=== PATIENT | male | born 1980 | race Caucasian/White ===

== ENCOUNTER 2017-05-28 09:40 | Emergency (ER) | payer SELFPAY ==
[~2017-05-28] VITALS: Ht 188 cm; Wt 120.0 kg
[~2017-05-28 09:40] MED LIST: CLIN1CAP5 PO; LORTA5 PO
[2017-05-28 09:43] VITALS: BP 137/79; PULSE 79; RESP 14; TEMP 98.3; O2SAT 97
[2017-05-28] MEDS ORDERED: KETOROLAC TROMETHAMINE 30 MG/ML (IVP) VIAL IVP ONE (10:30)
[2017-05-28] MEDS ORDERED: CLINDAMYCIN INJ 600 MG in SODIUM CHLORIDE 0.9% INJ 100 ML IV ONE (10:30)
[2017-05-28] MEDS ORDERED: CLINDAMYCIN 600 MG/NS PREMIX 50 ML IV ONE (10:30)
[2017-05-28] MEDS ORDERED: SODIUM CHLORIDE 0.9% FLUSH 10 ML FLUSH IVF PRN (10:30)
[2017-05-28] MEDS ORDERED: ACETAMINOPHEN 325 MG TAB PO ONE (10:30)
--- NOTE | 2017-05-28 10:43 | PD ---
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 Patient states it started several days ago and has been draining spontaneously. Patient was seen at [facility] yesterday and started on clindamycin 300 mg 3 times daily. Patient is here today as he has worsening headache, claims to have dizziness as well as visual issues associated he thinks from his illness. Patient does have a history of hitting the top of his head approximately 5 days ago with abrasions noted to the top of the scalp. Patient also has itchy rash to both wrists which have been present since last Sunday. Patient denies rash anywhere else. Rash was present prior to starting antibiotics yesterday. Currently headache is about 8 out of 10. Patient has mild nausea but no vomiting. Patient states he has difficulty driving secondary to his dizziness. Patient denies significant sore throat or difficulty swallowing. He denies any other specific neurological deficiencies. He has no known drug allergies. PFSH Past Medical History Diminished Hearing: No Integumentary: Yes (hx mrsa) Immunizations Current: Yes Social History Alcohol Use: Yes (2 days a week) Tobacco Use: Yes (1 pk) Substance Use: No Allergies-Medications (Allergen,Severity, Reaction): Coded Allergies: No Known Allergies (Unverified Allergy, Unknown, 05/28/17) Reported Meds & Prescriptions Reported Meds & Active Scripts Active Permethrin Topical 5% (Permethrin) 5% Cream 1 Applic TOPICAL ONCE Bactroban Topical (Mupirocin) 22 Gm Cream 1 Applic TOPICAL BID Mapap Extra Strength (Acetaminophen) 500 Mg Tab 1,000 Mg PO Q4-6H PRN Ibuprofen 800 Mg Tab 800 Mg PO Q8H PRN Clindamycin Hcl (Clindamycin HCl) 150 Mg Cap 2 Cap PO Q6H 10 Days Hydrocodone/Acetaminophen 5 mg/325 mg 1 Tab 1 Tab PO Q6H PRN Review of Systems Except as stated in HPI: all other systems reviewed are Neg General / Constitutional: No: Fever, Chills Eyes: Positive: Blurred Vision, No: Diploplia, Photophobia, Drainage, Redness, Foreign Body Sensation, Pain, Tearing, Blind Spots, Visual changes, Blindness HENT: Positive: Headaches, Lightheadedness, Rhinitis, Rhinorrhea, Congestion, Earache, No: Vertigo, Sore Throat, Nosebleed, Neck Stiffness, Neck Pain, Masses , Gingival Bleeding, Dental Difficulties, Ear Discharge Cardiovascular: No: Chest Pain or Discomfort Respiratory: No: Cough, Shortness of Breath, Wheezing Gastrointestinal: Positive: Nausea, No: Vomiting, Diarrhea, Abdominal Pain Genitourinary: No: Dysuria Musculoskeletal: No: Myalgias, Arthralgias, Limited ROM, Pain Skin: Positive Rash, Positive Itching (History of present illness) Neurologic: Positive: Dizziness, Headache, No: Weakness, Syncope, Focal Abnormalities, Coordination Problem, Tremor, Ataxia, Change in Mentation, Slurred Speech, Paresthesia, Incontinence, Seizures, Sensory Disturbance Psychiatric: No: Depression Endocrine: No: Polydipsia Hematologic/Lymphatic: No: Easy Bruising Physical Exam Narrative GENERAL: Patient appears in moderate distress. SKIN: Warm and dry. Normal color. Normal turgor. Patient has an open centimeter wide wound to the left mastoid region with localized erythema, tenderness and induration. No deep abscess is suspected. Patient is also noted to have raised dry rash to both wrists with linear distribution consistent with possible scabies. HEAD: Atraumatic. Normocephalic. Tender over the left mastoid region. EYES: Pupils equal and round. No scleral icterus. No injection or drainage. No nystagmus. ENT: No nasal bleeding or discharge. Mucous membranes pink and moist. Sinuses are mildly tender on the left frontal and maxillary region. Posterior pharynx is unremarkable. Uvula is midline. Airway is patent. TMs are somewhat dull bilaterally without injection. NECK: Trachea midline. Supple with mild lymphadenopathy in the left anterior cervical chain. CARDIOVASCULAR: Regular rate and rhythm. RESPIRATORY: No accessory muscle use. Clear to auscultation. Breath sounds equal bilaterally. MUSCULOSKELETAL: Extremities without clubbing, cyanosis, or edema. No obvious deformities. NEUROLOGICAL: Awake and alert. No obvious cranial nerve deficits. Motor grossly within normal limits. Five out of 5 muscle strength in the arms and legs. Normal speech. PSYCHIATRIC: Appropriate mood and affect; insight and judgment normal. Data Data Last Documented VS Vital Signs Date Time Temp Pulse Resp B/P (MAP) Pulse Ox O2 Delivery O2 Flow Rate FiO2 05/28/17 09:43 98.3 79 14 137/79 (98) 97 Orders Orders Basic Metabolic Panel (Bmp) (05/28/17 10:16) Complete Blood Count With Diff (05/28/17 10:16) Wound Culture And Gram Stain (05/28/17 10:16) Iv Access Insert/Monitor (05/28/17 10:16) Acetaminophen (Tylenol) (05/28/17 10:30) Ketorolac Inj (Toradol Inj) (05/28/17 10:30) Sodium Chloride 0.9% Flush (Ns Flush) (05/28/17 10:30) Ct Brain W/O Iv Contrast(Rout) (05/28/17 10:16) Clindamycin 600 Mg/Ns Premix (Cleocin 60 (05/28/17 10:30) Labs Laboratory Tests Test 05/28/17 10:32 White Blood Count 10.6 TH/MM3 Red Blood Count 4.47 MIL/MM3 Hemoglobin 14.0 GM/DL Hematocrit 40.7 % Mean Corpuscular Volume 90.9 FL Mean Corpuscular Hemoglobin 31.3 PG Mean Corpuscular Hemoglobin Concent 34.5 % Red Cell Distribution Width 13.1 % Platelet Count 290 TH/MM3 Mean Platelet Volume 6.8 FL Neutrophils (%) (Auto) 65.4 % Lymphocytes (%) (Auto) 25.7 % Monocytes (%) (Auto) 5.1 % Eosinophils (%) (Auto) 3.0 % Basophils (%) (Auto) 0.8 % Neutrophils # (Auto) 6.9 TH/MM3 Lymphocytes # (Auto) 2.7 TH/MM3 Monocytes # (Auto) 0.5 TH/MM3 Eosinophils # (Auto) 0.3 TH/MM3 Basophils # (Auto) 0.1 TH/MM3 CBC Comment DIFF FINAL Differential Comment Blood Urea Nitrogen 15 MG/DL Creatinine 0.86 MG/DL Random Glucose 144 MG/DL Calcium Level 8.4 MG/DL Sodium Level 139 MEQ/L Potassium Level 3.8 MEQ/L Chloride Level 106 MEQ/L Carbon Dioxide Level 26.9 MEQ/L Anion Gap 6 MEQ/L Estimat Glomerular Filtration Rate 100 ML/MIN MDM Medical Decision Making Medical Screen Exam Complete: Yes Emergency Medical Condition: Yes Medical Record Reviewed: Yes Differential Diagnosis Scabies. MRSA. Cellulitis. Mastoiditis. Sinusitis. Intracranial bleed. Head contusion. Headache. Narrative Course Patient is medically stable at time of exam. CT of the head is ordered to rule out intracranial bleed mastoiditis. IV access is obtained and labs are checked including CBC, BMP. Wound cultures obtained and sent to the lab. Patient is given 650 mg Tylenol p.o. as well as 30 mg Toradol IV, in addition to 600 mg clindamycin IV. CBC is unremarkable. CT is unremarkable except for small area of inflammation over the wound site on the left maxillary region. CMP is unremarkable. Patient will be treated with the clindamycin he was already prescribed yesterday. Patient also given Bactroban to be applied topically to the lesions. Patient also given Flonase nasal spray 2 sprays each nostril daily for presumed sinusitis as well. Patient also given a prescription for permethrin topical lotion to be used as directed with 1 refill. Patient given ibuprofen 800 mg 3 times daily with food. #30. Patient also given Mapap 500 mg 2 tabs every 6 hours as needed #60. Patient is to rest at home for the next 2 days, and work note is given. Patient to return to the emergency department if symptoms continue or worsen as needed. Diagnosis Primary Impression: Cellulitis of scalp Additional Impressions: MRSA cellulitis Sinusitis Qualified Codes: J32.4 - Chronic pansinusitis Scabies Referrals: Primary Care Physician Patient Instructions: General Instructions, MRSA (Methicillin-Resistant Staphylococcus Aureus) (ED), Scabies (ED), Sinusitis (ED) Departure Forms: Work Release Enter return to work date: May 31, 2017 Additional Instructions: CBC is unremarkable. CT is unremarkable except for small area of inflammation over the wound site on the left maxillary region. CMP is unremarkable. Patient will be treated with the clindamycin he was already prescribed yesterday. Patient also given Bactroban to be applied topically to the lesions. Patient also given Flonase nasal spray 2 sprays each nostril daily for presumed sinusitis as well. Patient also given a prescription for permethrin topical lotion to be used as directed with 1 refill. Patient given ibuprofen 800 mg 3 times daily with food. #30. Patient also given Mapap 500 mg 2 tabs every 6 hours as needed #60. Patient is to rest at home for the next 2 days, and work note is given. Patient to return to the emergency department if symptoms continue or worsen as needed. Med/Other Pt SpecificInfo: Prescription(s) given Scripts Permethrin Topical 5% (Permethrin Topical 5%) 5% Cream 1 APPLIC TOPICAL ONCE for Scabies, #1 TUBE 0 Refills Prov: Vasiliy Valle MD 05/28/17 Mupirocin Topical (Bactroban Topical) 22 Gm Cream 1 APPLIC TOPICAL BID for Mgmt Bacterial Infection, #1 TUBE 0 Refills Prov: Vasiliy Valle MD 05/28/17 Acetaminophen (Mapap Extra Strength) 500 Mg Tab 1000 MG PO Q4-6H Y for PAIN, #80 TAB 0 Refills Prov: Vasiliy Valle MD 05/28/17 Ibuprofen (Ibuprofen) 800 Mg Tab 800 MG PO Q8H Y for Pain/Inflammation, #30 TAB 0 Refills Prov: Vasiliy Valle MD 05/28/17 Disposition: 01 DISCHARGE HOME Condition: Stable Steve Rolle May 28, 2017 10:43
[2017-05-28 10:48] LABS: AUTOMATED NEUTROPHIL # 6.9 TH/MM3 (1.8-7.7); BASOPHIL # 0.1 TH/MM3 (0-0.2); BASOPHIL % 0.8 % (0.0-2.0); EOSINOPHIL # 0.3 TH/MM3 (0-0.4); HEMATOCRIT 40.7 % (39.0-51.0); LYMPH % 25.7 % (9.0-44.0); LYMPHOCYTE # 2.7 TH/MM3 (1.0-4.8); MEAN CELL VOLUME 90.9 FL (80.0-100.0); MEAN CORPUSCULAR HEMOGLOBIN 31.3 PG (27.0-34.0); MEAN CORPUSCULAR HGB CONC 34.5 % (32.0-36.0); MEAN PLATELET VOLUME 6.8 FL (7.0-11.0); MONO % 5.1 % (0.0-8.0); MONOCYTE # 0.5 TH/MM3 (0-0.9); NEUT % 65.4 % (16.0-70.0); PLATELET COUNT 290 TH/MM3 (150-450); RED BLOOD COUNT 4.47 MIL/MM3 (4.50-5.90); RED CELL DISTRIBUTION WIDTH 13.1 % (11.6-17.2); WHITE BLOOD COUNT 10.6 TH/MM3 (4.0-11.0)
--- NOTE | 2017-05-28 10:50 | RADRPT ---
EXAM DATE/TIME: 05/28/2017 10:37 [facility] COMPARISON: No previous studies available for comparison. INDICATIONS : Patient states boil on back of head behind left ear RADIATION DOSE: 43.04 CTDIvol (mGy) MEDICAL HISTORY : None SURGICAL HISTORY : None. ENCOUNTER: Initial ACUITY: 2 days PAIN SCALE: 3/10 LOCATION: Left cranial TECHNIQUE: Multiple contiguous axial images were obtained of the head. Using automated exposure control and adj ustment of the mA and/or kV according to patient size, radiation dose was kept as low as reasonably a chievable to obtain optimal diagnostic quality images. DICOM format image data is available electro nically for review and comparison. FINDINGS: CEREBRUM: The ventricles are normal for age. No evidence of midline shift, mass lesion, hemorrhage or acute in farction. No extra-axial fluid collections are seen. POSTERIOR FOSSA: The cerebellum and brainstem are intact. The 4th ventricle is midline. The cerebellopontine angle i s unremarkable. EXTRACRANIAL: The visualized portion of the orbits is intact. SKULL: The calvaria is intact. No evidence of skull fracture. Minimal soft tissue swelling left occiput CONCLUSION: Soft tissue swelling left occipital abscess. Juan Carlos Harris MD FACR on May 28, 2017 at 10:46 Board Certified Radiologist. This report was verified electronically.
[2017-05-28 11:11] LABS: BICARBONATE 26.9 MEQ/L (21.0-32.0); CALCIUM 8.4 MG/DL (8.5-10.1); CREATININE 0.86 MG/DL (0.60-1.30)
[2017-05-28] MEDS ORDERED: MAPA500T13 PO (11:23)
[2017-05-28] MEDS ORDERED: IBUP1TAB7 PO (11:23)
[2017-05-28] MEDS ORDERED: PERM5CRE TOPICAL (11:23)
[2017-05-28] MEDS ORDERED: MUPI2%T TOPICAL (11:23)
[2017-05-28] MEDS ORDERED: FLUT1SPR5 EACH NARE (11:39)
[2017-05-28 12:06] VITALS: BP 175/74
== END 2017-05-28 12:08 | disposition home or self-care (01) ==
LOC: NEPD 09:40
DX: L03.811 Cellulitis of head [any part, except face] (principal); B95.62 Methicillin resistant Staphylococcus aureus infection as the cause of diseases classified elsewhere; J32.4 Chronic pansinusitis; B86 Scabies; F17.210 Nicotine dependence, cigarettes, uncomplicated; Z86.14 Personal history of Methicillin resistant Staphylococcus aureus infection
CPT/HCPCS: 70450; 80048; 85025; 86403; 87070; 87186; 96374; 96375; 99284; J1885

== ENCOUNTER 2017-06-16 16:47 | Emergency (ER) | payer SELFPAY ==
[~2017-06-16] VITALS: Ht 188 cm; Wt 120.0 kg
[~2017-06-16 16:47] MED LIST changes: +FLUT1SPR5 EACH NARE; +IBUP1TAB7 PO; +MAPA500T13 PO; +MUPI2%T TOPICAL; +PERM5CRE TOPICAL
[2017-06-16 16:53] VITALS: BP 148/78; PULSE 66; RESP 16; TEMP 97.8; O2SAT 100
[2017-06-16] MEDS ORDERED: VANCOMYCIN INJ 1,000 MG in SODIUM CHLOR 0.9% 250 ML INJ 250 ML IV ONE (19:15)
[2017-06-16 19:27] LABS: AUTOMATED NEUTROPHIL # 7.6 TH/MM3 (1.8-7.7); BASOPHIL # 0.1 TH/MM3 (0-0.2); BASOPHIL % 0.6 % (0.0-2.0); EOSINOPHIL # 0.3 TH/MM3 (0-0.4); EOSINOPHIL % 2.2 % (0.0-4.0); HEMOGLOBIN 12.9 GM/DL (13.0-17.0); LYMPH % 30.8 % (9.0-44.0); LYMPHOCYTE # 3.9 TH/MM3 (1.0-4.8); MEAN CELL VOLUME 92.2 FL (80.0-100.0); MEAN CORPUSCULAR HEMOGLOBIN 31.3 PG (27.0-34.0); MEAN CORPUSCULAR HGB CONC 33.9 % (32.0-36.0); MONO % 5.9 % (0.0-8.0); MONOCYTE # 0.7 TH/MM3 (0-0.9); NEUT % 60.5 % (16.0-70.0); PLATELET COUNT 266 TH/MM3 (150-450); RED BLOOD COUNT 4.12 MIL/MM3 (4.50-5.90); RED CELL DISTRIBUTION WIDTH 12.8 % (11.6-17.2); WHITE BLOOD COUNT 12.6 TH/MM3 (4.0-11.0)
[2017-06-16 19:38] LABS: ALBUMIN 3.3 GM/DL (3.4-5.0); ALT (GPT) 26 U/L (12-78); AST (GOT) 34 U/L (15-37); BICARBONATE 31.6 MEQ/L (21.0-32.0); BLOOD UREA NITROGEN 19 MG/DL (7-18); CALCIUM 8.9 MG/DL (8.5-10.1); CHLORIDE 103 MEQ/L (98-107); CREATININE 0.97 MG/DL (0.60-1.30); GLOMERULAR FILTRATION RATE 87 ML/MIN (>89); GLUCOSE,RANDOM 88 MG/DL (74-106); SODIUM (NA) 140 MEQ/L (136-145)
[2017-06-16] MEDS ORDERED: KETOROLAC TROMETHAMINE 30 MG/ML (IVP) VIAL IV PUSH ONE (19:45)
[2017-06-16 19:46] LABS: ALKALINE PHOSPHATASE 73 U/L (45-117); TOTAL BILIRUBIN ADULT 0.2 MG/DL (0.2-1.0); TOTAL PROTEIN 6.2 GM/DL (6.4-8.2)
--- NOTE | 2017-06-16 20:01 | PD ---
HPI Chief Complaint: Skin Problem Time Seen by Provider: 18:40 Travel History International Travel<30 days: No Contact w/Intl Traveler<30days: No Traveled to known affect area: No History of Present Illness HPI Patient is a 36 year old male who comes in complaining of painful lesions behind his left ear. He says he has had them for the past week. He was seen on 06/13 and was given a prescription for Clindamycin. He says he does not feel this is working. His says he seems to be more confused. He says he has a lot of pressure in his head. He has not taken his temperature, but his is concerned he may have had a fever. He has been taking Tylenol and Ibuprofen for the pain. Severity is mild to moderate. PFSH Past Medical History Diminished Hearing: No Integumentary: Yes (hx mrsa) Immunizations Current: Yes Social History Alcohol Use: Yes (2 days a week) Tobacco Use: Yes (1 pk) Substance Use: No Allergies-Medications (Allergen,Severity, Reaction): Coded Allergies: No Known Allergies (Unverified Allergy, Unknown, 05/28/17) Reported Meds & Prescriptions Reported Meds & Active Scripts Active Bactrim DS (Sulfamethoxazole-Trimethoprim) 800-160 Mg Tab 1 Tab PO BID Review of Systems Except as stated in HPI: all other systems reviewed are Neg General / Constitutional: Positive: Fever Eyes: Positive: Blurred Vision HENT: Positive: Headaches Cardiovascular: No: Chest Pain or Discomfort Respiratory: No: Shortness of Breath Gastrointestinal: No: Nausea, Vomiting Genitourinary: No: Dysuria Musculoskeletal: No: Myalgias Skin: Positive Lesions Neurologic: No: Weakness, Dizziness Physical Exam Narrative GENERAL: Awake and alert, in no acute distress. SKIN: Focused skin assessment warm/dry. Erythema and 3 lesions behind the left ear. Lesions are 1cm in diameter, no fluctuance, scant drainage of fluid from one lesion. HEAD: Atraumatic. Normocephalic. EYES: Pupils equal and round and reactive. No scleral icterus. EOMI. ENT: Mucous membranes pink and moist. NECK: Trachea midline. No JVD. CARDIOVASCULAR: Regular rate and rhythm. No murmur appreciated. RESPIRATORY: No accessory muscle use. Clear to auscultation. Breath sounds equal bilaterally. GASTROINTESTINAL: Abdomen soft, non-tender, nondistended. MUSCULOSKELETAL: No obvious deformities. No clubbing. No cyanosis. No edema. NEUROLOGICAL: Awake and alert. No obvious cranial nerve deficits. Motor grossly within normal limits. Normal speech. PSYCHIATRIC: Appropriate mood and affect; insight and judgment normal. Data Data Last Documented VS Vital Signs Date Time Temp Pulse Resp B/P (MAP) Pulse Ox O2 Delivery O2 Flow Rate FiO2 06/16/17 16:53 97.8 66 16 148/78 (101) 100 Orders Orders Iv Access Insert/Monitor (06/16/17 19:05) Complete Blood Count With Diff (06/16/17 19:05) Comprehensive Metabolic Panel (06/16/17 19:05) Ct Brain W & W/O Iv Contrast (06/16/17 ) Vancomycin Inj (Vancomycin Inj) (06/16/17 19:15) Ketorolac Inj (Toradol Inj) (06/16/17 19:45) Ed Discharge Order (06/16/17 21:26) Labs Laboratory Tests Test 06/16/17 19:15 White Blood Count 12.6 TH/MM3 Red Blood Count 4.12 MIL/MM3 Hemoglobin 12.9 GM/DL Hematocrit 38.0 % Mean Corpuscular Volume 92.2 FL Mean Corpuscular Hemoglobin 31.3 PG Mean Corpuscular Hemoglobin Concent 33.9 % Red Cell Distribution Width 12.8 % Platelet Count 266 TH/MM3 Mean Platelet Volume 7.0 FL Neutrophils (%) (Auto) 60.5 % Lymphocytes (%) (Auto) 30.8 % Monocytes (%) (Auto) 5.9 % Eosinophils (%) (Auto) 2.2 % Basophils (%) (Auto) 0.6 % Neutrophils # (Auto) 7.6 TH/MM3 Lymphocytes # (Auto) 3.9 TH/MM3 Monocytes # (Auto) 0.7 TH/MM3 Eosinophils # (Auto) 0.3 TH/MM3 Basophils # (Auto) 0.1 TH/MM3 CBC Comment DIFF FINAL Differential Comment Blood Urea Nitrogen 19 MG/DL Creatinine 0.97 MG/DL Random Glucose 88 MG/DL Total Protein 6.2 GM/DL Albumin 3.3 GM/DL Calcium Level 8.9 MG/DL Alkaline Phosphatase 73 U/L Aspartate Amino Transf (AST/SGOT) 34 U/L Alanine Aminotransferase (ALT/SGPT) 26 U/L Total Bilirubin 0.2 MG/DL Sodium Level 140 MEQ/L Potassium Level 3.8 MEQ/L Chloride Level 103 MEQ/L Carbon Dioxide Level 31.6 MEQ/L Anion Gap 5 MEQ/L Estimat Glomerular Filtration Rate 87 ML/MIN MDM Medical Decision Making Medical Screen Exam Complete: Yes Emergency Medical Condition: Yes Medical Record Reviewed: Yes Differential Diagnosis abscess vs cellulitis vs folliculitis vs mastoiditis Narrative Course Patient is a 36 year old male who comes in complaining of pain and swelling behind his left ear. Exam shows area of erythema with small lesions. IV established, labs sent. Labs show small elevation in WBC count. CT head performed with and without contrast shows no intracranial abnormalities. Last [address] 06/16/17 0000 Signed Impressions: Service Date/Time: Sunday, June 16, 2017 20:10 - CONCLUSION: Left posterior auricular cellulitis and focal skin thickening consistent with the history of carbuncle. Keegan Gutiérrez MD Given a dose of Vancomycin. Based on prior sensitivities, patient will be discharged on Doxycycline (patient reports allergy to Bactrim). Advised to follow up with a primary care doctor. Advised to return to the ED as needed for any worsening symptoms. Diagnosis Primary Impression: Cellulitis Qualified Codes: L03.811 - Cellulitis of head [any part, except face] Referrals: [facility] call for appointment Patient Instructions: Cellulitis (ED), General Instructions Additional Instructions: Follow up with a primary care doctor. Return to the ED as needed for any worsening symptoms. Take all of your antibiotics. Apply warm compresses several times per day. Scripts Doxycycline Hyclate (Doxycycline Hyclate) 100 Mg Cap 100 MG PO BID for Infection, #20 CAP 0 Refills Prov: Ivon Tucker MD 06/16/17 Disposition: 01 DISCHARGE HOME Condition: Stable Ivon Tucker MD Jun 16, 2017 20:01
--- NOTE | 2017-06-16 20:28 | RADRPT ---
EXAM DATE/TIME: 06/16/2017 20:10 [facility] COMPARISON: CT BRAIN W/O CONTRAST, May 28, 2017, 10:37. INDICATIONS : Sores behind left ear; possible abscess. IV CONTRAST: 100 cc Omnipaque 350 (iohexol) IV RADIATION DOSE: 42.45 CTDIvol (mGy) MEDICAL HISTORY : None SURGICAL HISTORY : None. ENCOUNTER: Initial ACUITY: 4 - 6 days PAIN SCALE: 4/10 LOCATION: cranial TECHNIQUE: Multiple contiguous axial images were obtained of the head. Using automated exposure control and adj ustment of the mA and/or kV according to patient size, radiation dose was kept as low as reasonably a chievable to obtain optimal diagnostic quality images. DICOM format image data is available electro nically for review and comparison. FINDINGS: CEREBRUM: The ventricles are normal for age. No evidence of midline shift, cerebral edema or blood products. No extra-axial fluid collections are seen. POSTERIOR FOSSA: The cerebellum and brainstem are intact. The 4th ventricle is midline. The cerebellar pontine angle is unremarkable. EXTRACRANIAL: The visualized portion of the orbits is intact. In the left posterior auricular region there is indur ation of the subcutaneous fat and overlying skin thickening consistent with the history of a boil. Fo douglas skin thickening measures 1.1 x 0.5 cm in AP and transverse dimension on image 10. There is no sub cutaneous abscess. SKULL: The calvaria is intact. No evidence of skull fracture. POST CONTRAST: No abnormal areas of parenchymal or dural enhancement. No evidence of blood-brain barrier breakdown. CONCLUSION: Left posterior auricular cellulitis and focal skin thickening consistent with the history of carbuncl e. Keegan Gutiérrez MD on June 16, 2017 at 20:25 Board Certified Radiologist. This report was verified electronically.
[2017-06-16] MEDS ORDERED: BACT800T5 PO (21:26)
[2017-06-16] MEDS ORDERED: DOXY100C PO (21:38)
== END 2017-06-16 21:45 | disposition home or self-care (01) ==
LOC: NEPD 16:47
DX: L03.811 Cellulitis of head [any part, except face] (principal); F17.200 Nicotine dependence, unspecified, uncomplicated
CPT/HCPCS: 70470; 80053; 85025; 96365; 96375; 99284; J1885; J3370; J7050